=== PATIENT | female | born 1935 | race Two or more races ===

== ENCOUNTER 2018-11-10 14:16 | Inpatient (IN) | payer OTHER ==
[~2018-11-10] VITALS: Ht 167.6 cm; Wt 65.8 kg
--- NOTE | 2018-11-10 14:20 | NUR ---
SE RECIBE PTE EN AMBULANCIA REFIEREN PARAMEDICO QUE CON MAREOS ,FIBRILACION ATRIAL LA CANALIZARON EN LA MANO IZQUIERDA TIENE UN HEMATOMA ,JAMEL HINCHAZON ,TIENE OTRA CANALIZACION EN LA MANO IZQUIERDA COB ANGIO 20 ,CON UN 0.9%.
[2018-11-10] MEDS ORDERED: TOPROL XL100 M1 (14:53)
[2018-11-10] MEDS ORDERED: ALPRAZOLAM ODT0.5 MG (14:54)
[2018-11-10] MEDS ORDERED: AMLODIPINE-BEN1 EAC1 (14:54)
[2018-11-10] MEDS ORDERED: DOXAZOSIN MESYLA2 MG (14:54)
--- NOTE | 2018-11-10 14:58 | NUR ---
SE RECIBE PTE EN AMBULANCIA ALERTA Y ORIENTADA X3,ACOMPANADA POR WEN ESPOSO ,LOS PARAMEDICOS REFIEREN QUE ESTA FIBRILANDO ,LLEGO CON EDVIN VENA ABIERTA CON ANGIO # 20 ,LA MANO IZQUIERDA HINCHADA ,TRELL POR VENOPUNCION QUE TRAJO DE AMBULANCIA,LLEGO MAREADA .
--- NOTE | 2018-11-10 15:31 | NUR ---
SE RECIBE PTE FEMRNIMNA ALERTA Y ORIENTADA X3,AACOMPANADA DE FAMILIAR,ESTA LLEGA EN AMBULANCIA Y ES COLOCADA EN NANCY #18 CPU ER,SE CONECTA A MONITOIR CARDIACO MENG Y OXIMETRIA DE PULSO MENG, ,SE COLOCAN 2 H/L EN PERIFERAL DERECHA Y SE RETIRA IVF DE MANO DERECHO COLOCADO POR PERSONAL PARAMEDICO YA QUE SE OBSERVA EDEMA Y HEMATOMA EN EL QUE SE COLOCA BOLSA DE HIELO,SE COLOCA RITTER SIGUIENDO MEDIDAS ASEPTICAS, DESCONTINUA MEDICAMENTOS Y SE REALIZA EKG A WNE LLEGADA Y SE REALIZA UN THERESA L7UEGO DE PTE CONVERTIR ARRITMIA SIN MEDICAMENTOS,SE REALIZA B/P MANUAL Y SE NOTIFICA A ,SE ADMINISTRA MEDICAMENTO PARA DUISMINUIR B/P Y SE ORIENTA A POTE SE REALIZARA B/P EN 30 MINUTOS PARA VERIFICAR CAMBIOS. Y SER NOTIFICADOS,SE NOTIFICA A CARRILLO DE TERAPIA RESPIRATORIA SOBRE ABG A PTE EL CUAL FUE REALIZADO,SE MANTIENE A PTE EN VIGILANCIA MENG POR CAMBIOS.
--- NOTE | 2018-11-10 16:09 | NUR ---
SE REALIZA B/P MANUAL Y SE NOTIFICA A ,ESTA INDICA SE NOTIFIQUE A LO CUAL SE REALIZA (170/110)
--- NOTE | 2018-11-10 17:39 | NUR ---
SE REALIZA B/P MANUAL Y SE NOTIFICA A . ()
[2018-11-11] MEDS ORDERED: DOXAZOSIN MESYLA1 MG PO (08:03)
[2018-11-12] MEDS ORDERED: XARELTO20 MG PO (08:14)
== END 2018-11-12 11:14 | disposition home or self-care (01) | DRG 307 ==
LOC: ER 14:16 → MEDJ 20:01
PROVIDERS: ADMIT Internal Medicine
PROC: 4A12X4Z Monitoring of Cardiac Electrical Activity, External Approach (ICD-10-PCS; 2018-11-10)
PROC: 4A033R1 Measurement of Arterial Saturation, Peripheral, Percutaneous Approach (ICD-10-PCS; 2018-11-10)
PROC: 0T9B70Z Drainage of Bladder with Drainage Device, Via Natural or Artificial Opening (ICD-10-PCS; 2018-11-10)
PROC: B246ZZZ Ultrasonography of Right and Left Heart (ICD-10-PCS; principal; 2018-11-11)
DX: I08.0 Rheumatic disorders of both mitral and aortic valves (principal); I48.2 Chronic atrial fibrillation; I10 Essential (primary) hypertension; Z79.01 Long term (current) use of anticoagulants; R31.29 Other microscopic hematuria

== ENCOUNTER 2019-02-11 15:44 | Emergency (ER) | payer OTHER ==
[~2019-02-11] VITALS: Ht 160 cm; Wt 65.8 kg
[~2019-02-11 15:44] MED LIST: ALPRAZOLAM ODT0.5 MG; AMLODIPINE-BEN1 EAC1; CARDURA1 MG; CATAFLAM50 MG PO; CATAPRES0.1 MG; DOXAZOSIN MESYLA1 MG PO; DOXAZOSIN MESYLA2 MG; IRBESARTAN-HCT1 EAC1; LOTRISONE CREAM45 GM TP; TOPROL XL100 M1; XARELTO20 MG; XARELTO20 MG PO
[2019-02-11] MEDS ORDERED: KAPSPARGO SPRI100 MG (16:16)
[2019-02-11] MEDS ORDERED: PLAVIX75 MG (16:16)
[2019-02-11] MEDS ORDERED: ATORVASTATIN CA40 MG (16:17)
[2019-02-11] MEDS ORDERED: AMLODIPINE-OLM1 EAC3 (16:17)
[2019-02-11] MEDS ORDERED: CEFDINIR300 MG (16:18)
== END 2019-02-11 19:42 | disposition home or self-care (01) ==
LOC: ER 15:44
DX: R53.1 Weakness (principal)